=== PATIENT | male | born 1975 | race Caucasian/White ===

== ENCOUNTER 2023-11-23 16:00 | Outpatient (CLI) | payer OTHER, SELFPAY ==
[2023-11-23 19:49] LABS: Basophils Percent Auto 0.3 % (0.2-1.2); Eosinophils Absolute Auto 0.3 K/mm3 (0-0.3); Eosinophils Percent Auto 4.2 % (0-4.4); Hematocrit 47.3 % (42.0-52.0); Hemoglobin 14.9 g/dL (14.0-18.0); Immature Granulocyte Absolute 0.04 K/mm3 (0.00-0.031); Immature Granulocyte Percent A 0.6 % (0-0.5); Lymphocytes Absolute Auto 2.34 K/mm3 (0.9-3.2); Lymphocytes Percent Auto 35.5 % (18.3-44.2); Mean Corpuscular HGB Conc 31.5 g/dl (32-36); Mean Corpuscular Hemoglobin 29.6 pg (26-34); Mean Corpuscular Volume 93.8 fl (80-100); Monocytes Absolute Auto 0.6 K/mm3 (0.1-0.6); Monocytes Percent Auto 9.1 % (2.6-8.5); Neutrophils Absolute Auto 3.3 K/mm3 (1.3-6.7); Neutrophils Percent Auto 50.3 % (45.5-73.1); Platelet Count Result 297 k/mm3 (150-375); Red Blood Count 5.04 M/mm3 (4.6-6.20); Red Cell Distribution Width 13.2 % (11.5-14.5); White Blood Count 6.6 K/mm3 (4.5-10.0)
[2023-11-23 20:19] LABS: Anion Gap 9 mmol/L (8-16); Blood Urea Nitrogen 13 mg/dL (9-20); Calcium 9.2 mg/dL (8.4-10.2); Carbon Dioxide 27 mmol/L (22-30); Chloride 103 mmol/L (98-107); Cholesterol 242 mg/dL (0-200); Estimated Glomerular Filt Rate > 60; Glucose 92 mg/dL (65-110); HDL Direct 63 mg/dL; Potassium 4.8 mmol/L (3.4-5.0); Sodium 139 mmol/L (137-145); Triglycerides 159 mg/dL (<150)
[2023-11-23 20:30] LABS: LDL Cholesterol Direct 139 mg/dL
[2023-11-26 04:17] LABS: Thyroid Peroxidase Antibodies 2 IU/mL (<9)
== END 2023-11-23 16:01 | disposition home or self-care (01) ==
LOC: ANHGOSHLAB 16:02
PROVIDERS: PCP Nurse Practitioner Family; Visit Provider Nurse Practitioner Family
DX: Z00.00 Encounter for general adult medical examination without abnormal findings (principal)
CPT/HCPCS: 36415; 80048; 80061; 84443; 85025; 86376

== ENCOUNTER 2024-02-25 01:16 | Day surgery (SDC) | payer OTHER, SELFPAY ==
[2024-02-14 12:46] VITALS: BMI 34.2
--- NOTE | 2024-02-23 14:55 | SUR.PREOP ---
Patient called regarding upcoming procedure. Reviewed preop instructions, appointment times, and procedure prep.
[2024-02-25 09:37] VITALS: BP 132/85; PULSE 75; RESP 16; TEMP 36.5; O2SAT 97
[2024-02-25] MEDS: LACTATED RINGERS 1,000 ML 150 ML IV CONT (09:45)
--- NOTE | 2024-02-25 09:52 | WPDANESEPPF ---
Anes - Initial Pre Proc Eval Procedure: Operation Date: 02/25/24 11:00 Proposed Procedures p Screening Colonoscopy - Lonnie Abdullahi MD Date/Time: 02/25/24 09:52 Surgeon: Lonnie Abdullahi MD Pre Op Diagnosis: neoplasm screening Patient Data Age: 49 Gender: M Height: 1.75 m Weight: 105 kg Last Vital Signs Temp 97.7 F 02/25/24 09:37 Pulse 75 02/25/24 09:37 Resp 16 02/25/24 09:37 BP 132/85 02/25/24 09:37 Pulse Ox 97 02/25/24 09:37 O2 Del Method Room Air 02/25/24 09:37 Allergies Allergy/AdvReac Type Severity Reaction Status Date / Time Penicillins AdvReac Unknown Unknown Verified 02/25/24 09:36 Home Medications Medication Instructions Recorded Confirmed Type fluticasone propionate 50 1 spray intranasal DAILY PRN 11/23/23 02/14/24 History mcg/actuation nasal Allergies spray,suspension pantoprazole 20 mg tablet,delayed See Rx Instructions .Route 02/14/24 02/14/24 History release .COMPLEX PRN Heartburn Patient hx anesthesia problems: none Family hx anesthesia problems: none Results Review: All pre-operative results and documents have been reviewed as part of the pre-operative evaluation. [facility] Past Medical History Medical History (Updated 11/23/23 @ 16:07 by PATY RyderC) Tear of meniscus of left knee no repair done- still having pain. Surgical History Surgical History (Updated 11/23/23 @ 16:07 by ZOIE Ryder) History of urinary tract surgery small child, opening of urethra. Family History Family History (Updated 11/23/23 @ 15:10 by Kimmy MEYERS, LUIGI) Father Diabetes mellitus Hypertension Mother Cerebrovascular accident Social History Social History (Updated 11/23/23 @ 15:12 by Kimmy MEYERS, LUIGI) Years smoked: 22 Smoking status: Former smoker Tobacco type: cigarettes and e-cigarettes/vaping Second hand tobacco smoke exposure: No Additional smoking assessment comments: Currently vapes Alcohol intake: current Drinks per week: 12 Alcohol use details: 3-6 beers 2x wk Substance use: former Substance use type: marijuana Do You Feel Safe in your Home?: No Lack of Transportation: No Lack of Food: Never True Current Housing: I Have Housing Concerned About Future Housing: No Difficulty Paying Gas/Electric Bills: No Difficulty Paying for Meds: No Currently Unemployed: No Education: Trade/Vocational Certificate Difficulty w/ Childcare or Family Care: No Living arrangements: with family Occupation/Education: occupation Gender identity (if verbalized by the patient): Male Sexual Orientation (if Verbalized by the Patient): Straight or Heterosexual Spiritual care concerns: No Anes - Eval Final PreProcedure Day of Procedure 02/25/24 09:52 Patient weight: obese Heart: regular rate and rhythm Lungs: clear to auscultation Airway: Mallampati scale class II Neurological: alert and oriented Last oral intake: >/= 8 hours ASA classification: II Emergent: no Anesthetic plan: proceed Anesthesia type and monitoring: general GIVS and standard monitoring Results Review: All pre-operative results and documents have been reviewed as part of the pre-operative evaluation. Informed Consent: The patient's anesthetic plan and its attendant risks and benefits were discussed with the patient/family/POA. Questions were solicited and answers provided to the satisfaction of the patient/family/POA.
--- NOTE | 2024-02-25 10:16 | PM.HPGS ---
History of Present Illness History of Present Illness Consent: Risks, benefits, and alternatives have been discussed and questions answered. Patient agrees to proceed with procedure. Chief complaint: neoplasm screening Narrative: Neymar Guadarrama is a 49 year old male here for first screening colonoscopy Review of Systems Review of Systems: All systems reviewed & are unremarkable except as noted in HPI and below PMFSH Past Medical History Medical History (Updated 02/25/24 @ 10:16 by Lonnie Abdullahi MD) Colon cancer screening Tear of meniscus of left knee no repair done- still having pain. Surgical History Surgical History (Updated 11/23/23 @ 16:07 by PATY RyderC) History of urinary tract surgery small child, opening of urethra. Family History Family History (Updated 11/23/23 @ 15:10 by Kimmy MEYERS, A) Father Diabetes mellitus Hypertension Mother Cerebrovascular accident Social History Social History (Updated 11/23/23 @ 15:12 by Kimmy MEYERS, RMA) Years smoked: 22 Smoking status: Former smoker Tobacco type: cigarettes and e-cigarettes/vaping Second hand tobacco smoke exposure: No Additional smoking assessment comments: Currently vapes Alcohol intake: current Drinks per week: 12 Alcohol use details: 3-6 beers 2x wk Substance use: former Substance use type: marijuana Do You Feel Safe in your Home?: No Lack of Transportation: No Lack of Food: Never True Current Housing: I Have Housing Concerned About Future Housing: No Difficulty Paying Gas/Electric Bills: No Difficulty Paying for Meds: No Currently Unemployed: No Education: Trade/Vocational Certificate Difficulty w/ Childcare or Family Care: No Living arrangements: with family Occupation/Education: occupation Gender identity (if verbalized by the patient): Male Sexual Orientation (if Verbalized by the Patient): Straight or Heterosexual Spiritual care concerns: No Meds Home Medications and Allergies Home Medications Medication Instructions Recorded Confirmed Type fluticasone propionate 50 1 spray intranasal DAILY PRN 11/23/23 02/14/24 History mcg/actuation nasal Allergies spray,suspension pantoprazole 20 mg tablet,delayed See Rx Instructions .Route 02/14/24 02/14/24 History release .COMPLEX PRN Heartburn Allergies Allergy/AdvReac Type Severity Reaction Status Date / Time Penicillins AdvReac Unknown Unknown Verified 02/25/24 09:36 Vital Signs Vital Signs - 24 hr 02/25/24 09:37 Temperature 97.7 F Pulse Rate 75 Respiratory Rate 16 Blood Pressure 132/85 Pulse Oximetry 97 Oxygen Delivery Room Air Exam Const: General: comfortable and no acute distress HENMT: Face/Nose/Sinus: Normal nares present Eyes: General: appearance normal, both eyes and all related structures Neck: Neck: no JVD Resp: Auscultation: clear to auscultation bilaterally Cardio: Rate: regular rate Rhythm: regular rhythm GI: Inspection: non-distended GI Palp: Yes Soft to palpation Skin: General skin exam: normal color Neuro: General: gait normal Speech: normal speech Extrem: General: normal to inspection Psych: Mental Status: mental status grossly normal Assessment and Plan Assessment and plan (1) Colon cancer screening: Code(s): Z12.11 - Encounter for screening for malignant neoplasm of colon Status: Acute Assessment and Plan: colonoscopy
[2024-02-25 10:33] VITALS: BP 105/67; PULSE 79; RESP 25; O2SAT 97
[2024-02-25 10:43] VITALS: BP 115/74; PULSE 71; RESP 23; O2SAT 98
[2024-02-25 10:53] VITALS: BP 110/70; PULSE 62; RESP 16; O2SAT 100
== END 2024-02-25 11:00 | disposition home or self-care (01) ==
PROVIDERS: PCP Nurse Practitioner Family; Visit Provider Internal Medicine Gastroenterology
PROC: 0DJD8ZZ Inspection of Lower Intestinal Tract, Via Natural or Artificial Opening Endoscopic (ICD-10-PCS; CPT 45378; principal; 2024-02-25 11:00)
DX: Z12.11 Encounter for screening for malignant neoplasm of colon (principal); F17.290 Nicotine dependence, other tobacco product, uncomplicated; E66.9 Obesity, unspecified; Z68.34 Body mass index [BMI] 34.0-34.9, adult
CPT/HCPCS: 45378; J2704; J7120